=== PATIENT | male | born 1945 | race African-American/Black ===

== ENCOUNTER 2022-06-08 07:43 | Emergency (ER) | payer MEDICARE, OTHER ==
[~2022-06-08] VITALS: Ht 177.8 cm; Wt 93.0 kg
[2022-06-08 08:52] LABS: BASOPHILS % 0.7 % (0.0-2.0); HEMATOCRIT. 40.9 % (42.0-52.0); HEMOGLOBIN. 13.3 g/dL (14.0-18.0); MEAN CORPUSCULAR HEMOGLOBIN 28.8 pg (28.0-32.0); MEAN CORPUSCULAR VOLUME 88.4 fL (80.0-94.0); MEAN PLATELET VOLUME 9.6 fl (7.4-10.4); NEUTROPHILS % 81.3 % (40.0-76.0); PLATELET 198 x1000/uL (130-400); RED BLOOD CELL COUNT 4.62 mill/uL (4.7-6.1); RED CELL DISTRIBUTION WIDTH 15.5 % (11.6-14.6)
[2022-06-08 09:00] LABS: CHLORIDE 102 mEq/L (98-107)
[2022-06-08 09:59] LABS: PROTHROMBIN TIME 48.9 sec (9.6-11.0)
[2022-06-08 10:07] LABS: INR 5.2
[2022-06-08 14:25] VITALS: BP 120/70
== END 2022-06-08 14:38 | disposition left against medical advice (07) ==
LOC: ER 07:43 → EDBEDREQTM 12:25 → EDBEDREQ 12:25 → CANRESERV 12:56 → ENRESERV 12:56 → CANBEDREQ 13:49 → ER 14:38
DX: K43.6 Other and unspecified ventral hernia with obstruction, without gangrene (principal); K42.9 Umbilical hernia without obstruction or gangrene; K57.90 Diverticulosis of intestine, part unspecified, without perforation or abscess without bleeding; Z86.03 Personal history of neoplasm of uncertain behavior; I10 Essential (primary) hypertension; I25.10 Atherosclerotic heart disease of native coronary artery without angina pectoris; E78.00 Pure hypercholesterolemia, unspecified; Z95.1 Presence of aortocoronary bypass graft; Z85.028 Personal history of other malignant neoplasm of stomach; Z98.890 Other specified postprocedural states
CPT/HCPCS: 36415; 74176; 80053; 85025; 99291